=== PATIENT | female | born 1990 | race Caucasian/White ===

== ENCOUNTER 2020-11-03 14:22 | Emergency (ER) | payer SELFPAY ==
[~2020-11-03] VITALS: Ht 167.6 cm; Wt 88.2 kg
--- NOTE | 2020-11-03 14:55 | NUR ---
UA SENT TO LAB
[2020-11-03 15:03] LABS: BASOPHILS % (AUTO) 1 % (0-1); EOSINOPHILS % (AUTO) 1 % (1-7); LYMPHOCYTES % (AUTO) 22 % (22-44); MEAN CORPUSCULAR HEMOGLOBIN 27.4 pg (27.0-34.8); MEAN CORPUSCULAR HGB CONC 33.7 g/dL (32.4-35.8); MEAN PLATELET VOLUME 8.1 fL (7.4-10.4); MONOCYTES % (AUTO) 7 % (2-9); NEUTROPHILS % (AUTO) 69 % (42-75); PLATELET COUNT 320 x10^3/uL (130-400); RED BLOOD COUNT 4.58 x10^6/uL (3.82-5.3); RED CELL DISTRIBUTION WIDTH 19.3 % (9.6-15.2)
[2020-11-03 15:05] LABS: MICROSCOPIC NOT IND
[2020-11-03 15:07] LABS: MD MORPH REVIEW ONLY
--- NOTE | 2020-11-03 15:35 | NUR ---
PT CAME IN "I FEEL LIKE IM NOT ANYMORE. I HAD SOME SPOTTING ABOUT 10 DAYS AGO. IT WASNT MUCH. IM NOT CRAMPING. I JUST FEEL LIKE MY BABY ISNT DOING GOOD" PT STATES THIS IS HER SECOND WITH THE FIRST BEING A MISCARRIAGE. PT RESTING IN [facility]. US COMPLETE. LABS DRAWN.
[2020-11-03 15:41] LABS: ANISOCYTOSIS 1+
[2020-11-03 15:42] LABS: <PLATELET ESTIMATE> ADEQUATE; <PLT MORPHOLOGY> NORMAL PLT MORPH
[2020-11-03 16:50] VITALS: BP 164/92
--- NOTE | 2020-11-03 16:53 | NUR ---
RHOGAM VERIFIED BY SECOND RN. MAYRA
== END 2020-11-03 16:54 | disposition home or self-care (01) ==
LOC: ED 15:28
DX: O20.0 Threatened abortion (principal); R10.84 Generalized abdominal pain; Z3A.09 9 weeks gestation of pregnancy
CPT/HCPCS: 36415; 76801; 81003; 84702; 85025; 86850; 86900; 96372; 99284; J2790